=== PATIENT | female | born 1995 | race Caucasian/White ===

== ENCOUNTER → 2020-02-13 14:07 | Outpatient (REF) | payer OTHER, SELFPAY | LOC: ANHLAB 14:07 | PROVIDERS: PCP Pediatrics; Visit Provider Surgery Plastic and Reconstructive Surgery | DX: L72.0 Epidermal cyst (principal) | CPT/HCPCS: 88304 ==

== ENCOUNTER 2020-07-30 15:58 | Emergency (ER) | payer BC, SELFPAY ==
--- NOTE | ~2020-07-30 | XR_ITS ---
EXAMINATION: XR ankle LT min 3V, XR foot LT min 3V DATE: 07/30/2020 16:46 INDICATION: Left foot and ankle injury with lateral sided pain TECHNIQUE: 1. Anteroposterior, mortise, additional oblique and lateral view of the left ankle were obtained. 2. Dorsoplantar, two oblique and lateral views of the left foot were obtained. COMPARISON: None. FINDINGS: Alignment of the foot and ankle is normal. No fracture or osteochondral lesion. Joint spaces are well maintained. No ankle joint effusion. Soft tissue swelling about the lateral malleolus. IMPRESSION: 1. No osseous abnormality at the left foot or ankle. Reviewed, dictated and finalized at location A. [employer]VIEW[employer] IMPRESSION: 1. No osseous abnormality at the left foot or ankle.
--- NOTE | 2020-07-30 16:03 | ED_ITS ---
HPI - General Adult General Stated complaint: Extremity Injury, Lower Time Seen by Provider: 07/30/20 16:03 Source: patient Mode of arrival: ambulatory Limitations: no limitations Related Data Home Medications Medication Instructions Recorded Confirmed norethindrone 1 mg-ethinyl 1 tablet PO DAILY tablet 01/29/20 estradiol 20 mcg (21)-iron 75 mg (7) tablet Allergies Allergy/AdvReac Type Severity Reaction Status Date / Time No Known Allergies Allergy Verified 02/19/20 14:06 Review of Systems Review of Systems: Narrative: CONSTITUTIONAL: Denies fever, chills, or sweats. EYES: Denies visual changes, redness, or discharge. ENT: Denies rhinorrhea, congestion, sore throat, or otalgia. CARDIOVASCULAR: Denies chest pain, palpitations, or edema. RESPIRATORY: Denies cough or dyspnea. GASTROINTESTINAL: Denies abdominal pain, nausea, vomiting, or diarrhea. GENITOURINARY: Denies dysuria or hematuria. SKIN: Denies rash or itching. MUSCULOSKELETAL: Denies back pain, joint pain, or myalgia. NEUROLOGIC: Denies headache, numbness, or weakness. PSYCHIATRIC: Denies anxiety or depression. [facility] Surgical History Surgical History Hx of tonsillectomy 2010 Hx of wisdom tooth extraction 2010 Social History Social History Smoking status: Current every day smoker Tobacco type: cigarettes Alcohol intake: current Comments At the time of my signature I agree with nursing past medical history, surgical, social, and family history. There is no relevant family history pertinent to the presenting complaint. Exam Narrative: Exam Narrative: GENERAL: Well-appearing, well-nourished, and in no acute distress. HEAD: Normocephalic, atraumatic. EYES: PERRLA and EOMI. ENT: Nares clear, no rhinorrhea or epistaxis. Mucous membranes moist. NECK: Supple. No lymphadenopathy CHEST: Clear to auscultation. No respiratory distress. HEART: Regular rate and rhythm. No murmur heard. Normal peripheral pulses. ABDOMEN: Soft, nontender, nondistended, normal active bowel sounds. EXTREMITIES: Normal range of motion. No edema. SKIN: Warm, dry, no rash. NEURO: No focal deficits. Alert and oriented x3. Course Vital Signs Vital signs: Vital signs reviewed. Medical Decision Making Differential Diagnosis Differential Diagnosis: Differential diagnosis: Critical Care Time Critical Care Time Critical Care Time: No Discharge Plan Discharge Prescriptions: No Action norethindrone-e.estradiol-iron 1 mg-20 mcg (21)/75 mg (7) tablet 1 tablet PO DAILY RF: 0
[2020-07-30 16:10] VITALS: BP 147/91; PULSE 103; RESP 20; TEMP 36.8; O2SAT 100
--- NOTE | 2020-07-30 16:25 | ED.GENADULT ---
HPI - General Adult General Chief complaint: Extremity Injury, Lower Stated complaint: Extremity Injury, Lower Time Seen by Provider: 07/30/20 16:03 Source: patient Mode of arrival: ambulatory Limitations: no limitations History of Present Illness HPI narrative: 25-year-old female patient presents to the [facility] with complaints of left ankle pain since yesterday. Patient states that she was walking down some stairs and missed some steps and fell about 3 stairs and twisted her left ankle. Patient states she has been icing and taking ibuprofen for pain. Patient states she has had a little bit of tingling to the toes. Related Data Home Medications Medication Instructions Recorded Confirmed No Home Medications 07/30/20 07/30/20 Allergies Allergy/AdvReac Type Severity Reaction Status Date / Time No Known Allergies Allergy Verified 07/30/20 16:22 Review of Systems Review of Systems: Narrative: CONSTITUTIONAL: Denies fever, chills, or sweats. EYES: Denies visual changes, redness, or discharge. ENT: Denies rhinorrhea, congestion, sore throat, or otalgia. CARDIOVASCULAR: Denies chest pain, palpitations, or edema. RESPIRATORY: Denies cough or dyspnea. GASTROINTESTINAL: Denies abdominal pain, nausea, vomiting, or diarrhea. GENITOURINARY: Denies dysuria or hematuria. SKIN: Denies rash or itching. MUSCULOSKELETAL: Denies back pain, joint pain, or myalgia. Positive left ankle pain NEUROLOGIC: Denies headache, numbness, or weakness. PSYCHIATRIC: Denies anxiety or depression. [facility] Surgical History Surgical History Hx of tonsillectomy 2010 Hx of wisdom tooth extraction 2010 Social History Social History Smoking status: Current every day smoker Tobacco type: cigarettes Alcohol intake: current Comments At the time of my signature I agree with nursing past medical history, surgical, social, and family history. There is no relevant family history pertinent to the presenting complaint. Exam Narrative: Exam Narrative: GENERAL: Well-appearing, well-nourished, and in no acute distress. HEAD: Normocephalic, atraumatic. EYES: PERRLA and EOMI. ENT: Nares clear, no rhinorrhea or epistaxis. Mucous membranes moist. NECK: Supple. No lymphadenopathy CHEST: Clear to auscultation. No respiratory distress. HEART: Regular rate and rhythm. No murmur heard. Normal peripheral pulses. ABDOMEN: Soft, nontender, nondistended, normal active bowel sounds. EXTREMITIES: Patient is able to bear weight and ambulate but has increased pain to the left ankle. The L ankle is without obvious asymmetry or deformity when compared to the R ankle. Patient does have significant swelling over the left lateral malleolus area. Patient can flex/extend but does have pain with this movement, normal invert/jeanmarie. Slight ecchymosis noted to the lateral side of the ankle, with significant soft tissue swelling. Bony tenderness to palpation over the lateral malleolus. Pain to the anterior talofibular ligament, no pain over the posterior talofibular ligament, calcaneofibular ligament nontender and without swelling. No tenderness or deformity of the midfoot or over the proximal fifth metatarsal. Good DP and posterior tibial pulses and sensation to light touch normal. Talar tilt test is negative for ligament laxity to valgus or vargus stress. Negative anterior draw. Peroneal nerve is intact with strong eversion and plantar flexion. SKIN: Warm, dry, no rash. NEURO: No focal deficits. Alert and oriented x3. Course Reevaluation(s) Reevaluation #1: Reevaluated patient after x-ray resulted. Discussed with patient that there is no acute fracture at this time. Discussed with patient this is most likely a severe sprain. Discussed with her we will go ahead and wrap her ankle with an Micah wrap and fit her for some crutches. I will go ahead and give her tomorrow off of
== END 2020-07-30 17:05 | disposition home or self-care (01) ==
PROVIDERS: Emergency Provider Nurse Practitioner Family
DX: S93.402A Sprain of unspecified ligament of left ankle, initial encounter (principal); W10.9XXA Fall (on) (from) unspecified stairs and steps, initial encounter; F17.210 Nicotine dependence, cigarettes, uncomplicated
CPT/HCPCS: 73610; 73630; 99213; G0463